=== PATIENT | male | born 1980 ===

== ENCOUNTER 2017-01-30 16:44 | Emergency (ER) | payer MEDICAID ==
[2017-01-30 16:49] VITALS: O2SAT 100
--- NOTE | 2017-01-30 17:49 | ED PDOC ---
HPI: General Adult Time Seen by Provider: 01/30/17 17:06 Chief Complaint (Nursing): Weakness/Neurological Deficit Chief Complaint (Provider): left arm numbness History Per: Patient Additional Complaint(s): 37-year-old male presents to emergency department with left arm numbness that started last night before he went to sleep. Patient states the numbness travels up and down his arm and is not associated with any chest pain, shortness of breath or dyspnea on exertion. Patient denies any associated neck pain or headache. He denies any weakness or heaviness of the left arm. Patient denies injury or trauma. Numbness persisted throughout today prompting ED visit this evening. Past Medical History Reviewed: Historical Data, Nursing Documentation, Vital Signs Vital Signs: Last Vital Signs Temp 98.6 F 01/30/17 16:47 Pulse 65 01/30/17 16:47 Resp 16 01/30/17 16:47 BP 143/76 01/30/17 16:47 Pulse Ox 100 01/30/17 17:58 - Medical History PMH: No Chronic Diseases - Family History Family History: States: No Known Family Hx - Living Arrangements Living Arrangements: With Family - Social History Current smoker - smoking cessation education provided: Yes Alcohol: Social Drugs: Cannabis - Home Medications Home Medications: Ambulatory Orders Medication Instructions Recorded Neomycin/Polymyxin/Dexamethaso 1 drop LEFTEYE Q6 #1 bottle 12/28/14 [Dexamethasone/Neomycin/Polymyxin 5 Ml] - Allergies Allergies/Adverse Reactions: Allergies Allergy/AdvReac Type Severity Reaction Status Date / Time No Known Allergies Allergy Verified 01/30/17 16:47 Review of Systems ROS Statement: Except As Marked, All Systems Reviewed And Found Negative Constitutional: Negative for: Fever, Weakness Cardiovascular: Negative for: Chest Pain, Palpitations Respiratory: Negative for: Cough Gastrointestinal: Negative for: Nausea, Vomiting Musculoskeletal: Positive for: Arm Pain (numbness of left arm since yesterday) Neurological: Negative for: Weakness, Numbness, Incoordination, Change in Speech , Confusion, Seizures, Altered Mental Status, Headache, Dizziness Physical Exam - Reviewed Nursing Documentation Reviewed: Yes Vital Signs Reviewed: Yes - Physical Exam Appears: Positive for: Well, Non-toxic, No Acute Distress Head Exam: Positive for: ATRAUMATIC, NORMAL INSPECTION Skin: Negative for: Rash Eye Exam: Positive for: Normal appearance, EOMI, PERRL ENT: Positive for: Normal ENT Inspection Neck: Positive for: Normal. 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 Negative for: Motor/Sensory Deficits, Aphasia, Facial Droop - Laboratory Results Result Diagrams: 01/30/17 18:12 01/30/17 18:12 - ECG Interpretation Of ECG: Normal sinus rhythm 70 bpm with no acute findings, reviewed by PA and ED attending. O2 Sat by Pulse Oximetry: 100 Pulse Ox Interpretation: Normal - Other Rad CXR X-Ray: Interpreted by Me, Viewed By Me X-Ray Interpretation: no acute finding C spine CT X-Ray: Read By Radiologist X-Ray Interpretation: no acute finding Medical Decision Making Medical Decision Makin-year-old with left arm numbness since yesterday. No acute neuro deficits noted on exam. Plan: CBC CMP Trop EKG CXR CT cervical spine IVF Patient is aware of all diagnostic testing results, all questions answered. Patient states left arm feels less numb. Case was discussed with neurology telesales consultant, Dr. Pulliam, who agrees patient is stable for discharge. Patient was referred for outpatient follow-up. He was advised to rest left arm as much as possible and take NSAIDs for pain as needed. Patient aware he can return to ED if acutely worse at any time. Disposition - Clinical Impression Clinical Impression: Paresthesia of left arm - Patient ED Disposition Is Patient to be Admitted: No Counseled Patient/Family Regarding: Studies Performed, Diagnosis, Need For Followup - Disposition Referrals: Braxton Pulliam MD [Medical Doctor] - Disposition: Routine/Home Disposition Time: 19:25 Condition: STABLE Additional Instructions: Rest left arm as much as possible. Tylenol or Motrin for pain as needed. Follow- up with neurologist for further evaluation. Instructions: Paresthesia (ED) Forms: [employer] (Syriac) Results - Lab Results Lab Results: 01/30/17 01/30/17 18:12 18:12 WBC 7.2 RBC 4.77 Hgb 15.4 Hct 45.2 MCV 94.7 H MCH 32.3 H MCHC 34.1 RDW 12.5 Plt Count 230 MPV 9.6 Neut % (Auto) 60.8 Lymph % (Auto) 28.6 Towns % (Auto) 8.0 Eos % (Auto) 1.8 Baso % (Auto) 0.8 Neut # 4.4 Lymph # 2.0 Towns # 0.6 Eos # 0.1 Baso # 0.1 Sodium 141 Potassium 4.1 Chloride 102 Carbon Dioxide 26 Anion Gap 17 BUN 16 Creatinine 1.0 Est GFR ( Amer) > 60 Est GFR (Non-Af Amer) > 60 Random Glucose 84 Calcium 9.6 Total Bilirubin 1.1 AST 49 ALT 75 H Alkaline Phosphatase 86 Troponin I < 0.0120 Total Protein 7.8 Albumin 4.7 Globulin 3.1 Albumin/Globulin Ratio 1.5
[2017-01-30] MEDS ORDERED: Sodium Chloride 0.9% 1,000 ML IV STA (17:59)
[2017-01-30 18:16] LABS: BASO # 0.1 K/uL (0.0-0.2); BASO % 0.8 % (0.0-2.0); EOS # 0.1 K/uL (0.0-0.7); EOS % 1.8 % (0.0-4.0); HEMATOCRIT 45.2 % (35.0-51.0); LYMPH % 28.6 % (20.0-40.0); MEAN CELL VOLUME 94.7 fl (80.0-94.0); MEAN CORPUSCULAR HEMOGLOBIN 32.3 pg (27.0-31.0); MEAN CORPUSCULAR HGB CONC 34.1 g/dL (33.0-37.0); MEAN PLATELET VOLUME 9.6 fl (7.2-11.7); MONO # 0.6 K/uL (0.0-0.8); NEUT # 4.4 K/uL (1.8-7.0); NEUT % 60.8 % (50.0-75.0); NRBC % 0.1 % (0.0-0.0); RED CELL DISTRIBUTION WIDTH 12.5 % (11.5-14.5); WHITE BLOOD COUNT 7.2 K/uL (4.8-10.8)
[2017-01-30 18:35] LABS: ALB/GLOB RATIO 1.5 (1.0-2.1); ALKALINE PHOSPHATASE 86 U/L (38-126); ALT/SGPT 75 U/L (21-72); AST/SGOT 49 U/L (17-59); BILIRUBIN,TOTAL 1.1 mg/dl (0.2-1.3); BLOOD UREA NITROGEN 16 mg/dl (9-20); CALCIUM 9.6 mg/dL (8.4-10.2); CARBON DIOXIDE 26 mmol/L (22-30); CHLORIDE 102 mmol/L (98-107); GFR AFRICAN-AMERICAN > 60; GLUCOSE,RANDOM 84 mg/dL (75-110); POTASSIUM 4.1 MMOL/L (3.6-5.0); SODIUM 141 mmol/l (132-148); TOTAL PROTEIN 7.8 G/DL (6.3-8.2)
--- NOTE | 2017-01-30 18:56 | RAD ---
PROCEDURE: CHEST RADIOGRAPH, 1 VIEW HISTORY: clearance COMPARISON: None available. FINDINGS: LUNGS: Clear. PLEURA: No pneumothorax or pleural fluid seen. CARDIOVASCULAR: No radiographic findings to suggest acute or significant cardiovascular disease. OSSEOUS STRUCTURES: No significant abnormalities. VISUALIZED UPPER ABDOMEN: Normal. OTHER FINDINGS: None. IMPRESSION: No active disease.
--- NOTE | 2017-01-30 18:58 | CT ---
PROCEDURE: CT Cervical Spine without contrast HISTORY: <left arm numbness> COMPARISON: None available. TECHNIQUE: Axial computed tomography images were obtained of the cervical spine without the use of intravenous contrast. Coronal and sagittal reformatted images were created and reviewed. Radiation dose: Total exam DLP = mGy-cm. This CT exam was performed using one or more of the following dose reduction techniques: Automated exposure control, adjustment of the mA and/or kV according to patient size, and/or use of iterative reconstruction technique. FINDINGS: VERTEBRAE: No fracture. Normal alignment. No destructive bony lesion. DISCS/SPINAL CANAL/NEURAL FORAMINA: No significant central canal or neural foraminal stenosis. Discs heights are grossly preserved. PARASPINAL SOFT TISSUES: Unremarkable. OTHER FINDINGS: None. IMPRESSION: Unremarkable CT of the cervical spine.
[2017-01-30 19:38] VITALS: BP 133/75; PULSE 77; RESP 17; TEMP 98.2
== END 2017-01-30 19:34 | disposition home or self-care (01) ==
LOC: H.ER 16:44
DX: R20.2 Paresthesia of skin (principal)
CPT/HCPCS: 71010; 72125; 80053; 84484; 85025; 96360; 99285; J7040

== ENCOUNTER 2018-02-26 19:43 | Emergency (ER) | payer MEDICAID ==
--- NOTE | 2018-02-26 21:18 | ED PDOC ---
Upper Extremity Pain/Injury Time Seen by Provider: 02/26/18 20:04 Chief Complaint (Nursing): Upper Extremity Problem/Injury History Per: Patient Additional Complaint(s): Pt. states for the past 3-4 years he's had intermittent L shoulder pain. Reports pain starts in the L shoulder and radiates down the entire arm. States he's been evaluated for this same symptom in the past and discharged but never f/u with specialist or PMD. Denies chest pain, SOB, palpitations, neck pain, fever, weakness. Past Medical History Reviewed: Historical Data, Nursing Documentation, Vital Signs Vital Signs: Last Vital Signs Temp 98.3 F 02/26/18 20:02 Pulse 65 02/26/18 20:02 Resp 18 02/26/18 20:02 BP 144/81 02/26/18 20:02 Pulse Ox 99 02/26/18 20:02 - Family History Family History: States: No Known Family Hx - Immunization History Hx Tetanus Toxoid Vaccination: Yes Hx Influenza Vaccination: No Hx Pneumococcal Vaccination: No - Home Medications Home Medications: Ambulatory Orders Medication Instructions Recorded Neomycin/Polymyxin/Dexamethaso 1 drop LEFTEYE Q6 #1 bottle 12/28/14 [Dexamethasone/Neomycin/Polymyxin 5 Ml] Meloxicam [Mobic] 15 mg PO DAILY PRN #15 tab 02/26/18 - Allergies Allergies/Adverse Reactions: Allergies Allergy/AdvReac Type Severity Reaction Status Date / Time No Known Allergies Allergy Verified 02/26/18 20:02 Review of Systems ROS Statement: Except As Marked, All Systems Reviewed And Found Negative Musculoskeletal: Positive for: Shoulder Pain Physical Exam - Physical Exam Appears: Positive for: Well, Non-toxic, No Acute Distress Skin: Positive for: Normal Color, Warm. 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 Negative for: Aphasia, Facial Droop - ECG ECG: Positive for: Interpreted By Me ECG Rhythm: Positive for: Sinus Bradycardia. Negative for: ST/T Changes Rate: 53 O2 Sat by Pulse Oximetry: 99 - Radiology X-Ray: Interpreted by Me (L shoulder x-ray) X-Ray Interpretation: No Acute Disease - Progress ED Course And Treament: Toradol 30mg IM ordered. Disposition - Clinical Impression Clinical Impression: Shoulder pain - Patient ED Disposition Is Patient to be Admitted: No - Disposition Referrals: Gaby Suarez MD [Staff Provider] - Disposition: Routine/Home Disposition Time: 21:47 Condition: STABLE Additional Instructions: FOLLOW UP WITH ORTHOPEDIST FOR FURTHER EVALUATION SKYLAR HURST, thank you for letting us take care of you today. Your provider was Olegario Cavanaugh MD and you were treated for LT SHOULDER PAIN. The emergency medical care you received today was directed at your acute symptoms. If you were prescribed any medication, please fill it and take as directed. It may take several days for your symptoms to resolve. Return to the Emergency Department if your symptoms worsen, do not improve, or if you have any other problems. Please contact your doctor or call one of the physicians/clinics you have been referred to that are listed on the Patient Visit Information form that is included in your discharge packet. Bring any paperwork you were given at discharge with you along with any medications you are taking to your follow up visit. Our treatment cannot replace ongoing medical care by a primary care provider outside of the emergency department. Thank you for allowing the [facility] team to be part of your care today. If you had an X-Ray or CT scan: A Radiologist will review the ED reading if any change in treatment is needed we will contact you. If you had a blood, urine, or wound culture: It will take several days for the results, if any change in treatment is needed we will contact you. If you had an STI test: It will take 48 hours for the results. Please call after 1 week if you have not heard back. Prescriptions: Meloxicam [Mobic] 15 mg PO DAILY PRN #15 tab PRN Reason: Pain Instructions: Joint Pain Forms: [employer] (Macedonian), [facility] ED School/Work Excuse Print Language: CHILEAN
[2018-02-26 22:00] VITALS: BP 130/82; PULSE 52; RESP 16; TEMP 98; O2SAT 98
--- NOTE | 2018-02-27 06:54 | CARD ---
APPROVED REPORT Date of service: 02/26/2018 EKG Measurement Heart [id number] <Conclusion> Sinus bradycardia Otherwise normal ECG
--- NOTE | 2018-02-27 10:40 | RAD ---
Date of service: 02/26/2018 PROCEDURE: Radiographs of the Left Shoulder HISTORY: pain COMPARISON: No prior. FINDINGS: BONES: Bone alignment and mineralization are normal. There is no acute displaced fracture or bone destruction. JOINTS: Normal. Glenohumeral and acromioclavicular joints preserved. No osteoarthritis. SOFT TISSUES: Normal. OTHER FINDINGS: None. IMPRESSION: No acute fracture or dislocation.
== END 2018-02-26 21:59 | disposition home or self-care (01) ==
LOC: H.ER 19:43
DX: M25.512 Pain in left shoulder (principal)
CPT/HCPCS: 73030; 93005; 96372; 99283; J1885